=== PATIENT | female | born 1965 | race African-American/Black ===

== ENCOUNTER → 2021-06-18 | Outpatient (CLI) | payer BC ==
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
== END ==
LOC: KCIC 14:14
PROVIDERS: ATTEND Physical Medicine & Rehabilitation
DX: M17.0 Bilateral primary osteoarthritis of knee (principal); M47.813 Spondylosis without myelopathy or radiculopathy, cervicothoracic region; M47.815 Spondylosis without myelopathy or radiculopathy, thoracolumbar region; S80.852A Superficial foreign body, left lower leg, initial encounter; M48.02 Spinal stenosis, cervical region; M25.78 Osteophyte, vertebrae; X58.XXXA Exposure to other specified factors, initial encounter; Y93.89 Activity, other specified; Y92.89 Other specified places as the place of occurrence of the external cause; Y99.8 Other external cause status
CPT/HCPCS: 72050; 72072; 72110; 73565

== ENCOUNTER → 2021-10-18 | Outpatient (CLI) | payer BC ==
[~2021-10-18] MED LIST: AMLO-186 PO; ASPI-886 PO; ATOR40TA59 PO; CLOP75TA PO; GABA300C18 PO; HYDR-2868 PO; LOSA100T14 PO; TRAM50TA PO
== END ==
LOC: LAB 09:58
PROVIDERS: ATTEND Orthopaedic Surgery Sports Medicine
DX: Z01.812 Encounter for preprocedural laboratory examination (principal); Z20.822 Contact with and (suspected) exposure to COVID-19
CPT/HCPCS: U0003

== ENCOUNTER 2021-10-22 07:24 | Day surgery (SDC) | payer BC ==
[~2021-10-22] VITALS: Ht 180.3 cm; Wt 113.0 kg
[~2021-10-22 07:24] MED LIST changes: -AMLO-186 PO; -ASPI-886 PO; -ATOR40TA59 PO; +BUPIVACAINE MPF 0.5% 30 ML VIAL. ONE; -CLOP75TA PO; -GABA300C18 PO; -HYDR-2868 PO; +LIDOCAINE 1% Multi-Dose 20 ML VIAL. ONE; -LOSA100T14 PO; -TRAM50TA PO
[2021-10-22] MEDS ORDERED: GABA300C18 PO (07:57)
[2021-10-22] MEDS ORDERED: LOSA100T14 PO (07:57)
[2021-10-22] MEDS ORDERED: HYDR-2868 PO (07:57)
[2021-10-22] MEDS ORDERED: ATOR40TA59 PO (07:57)
[2021-10-22] MEDS ORDERED: AMLO-186 PO (07:57)
[2021-10-22] MEDS ORDERED: CLOP75TA PO (07:57)
[2021-10-22] MEDS ORDERED: ASPI-886 PO (07:57)
[2021-10-22] MEDS ORDERED: TRAM50TA PO (07:57)
[2021-10-22 08:00] VITALS: BP 130/72
[2021-10-22] MEDS ORDERED: IV RINGERS,LACTATED 1000ML 1,000 ML IV SCH (08:00)
[2021-10-22] MEDS ORDERED: SEVOFLURANE 31 TO 60 MINUTES. IH ONE (08:40)
[2021-10-22] MEDS ORDERED: LIDOCAINE 2% PF 5 ML VIAL. ONE (08:40)
[2021-10-22] MEDS ORDERED: PROPOFOL 10 MG/ML (20ML) VIAL. IV ONE (08:40)
--- NOTE | 2021-10-22 08:53 | DISCH ---
DISCHARGE INSTRUCTIONS Condition on Discharge Condition on Discharge: Stable Activity After Discharge Activity Instructions for Disc: Other ROM activity Other activity instructions: Wiggle fingers, keep wrist and hand elevated Lifting Instructions after Dis: No heavy lifting, No pulling or pushing Weight Bearing Status after Di: As tolerated Diet after Discharge Diet after Discharge: Regular Wound Incision Care Wound/Incision Care: Ice to area for comfort, Keep wound/cast CDI, Change dressing Other wound/incision instructi: Change dressing in [address] after DC Call your doctor for: Concerns you may have Follow-Up Follow up with: Surgeon in 2 weeks IWONA LIRA II, MD Oct 22, 2021 08:53
--- NOTE | 2021-10-22 08:56 | PDOC4 ---
Operative Note Operative Note Date of procedure: 10/22/2021 Surgeon: Washington Lira Director Of Business Operations: Jesu Funes Preoperative diagnosis: Right carpal tunnel syndrome Postoperative diagnosis: Same Procedure performed: Open right carpal tunnel release Anesthesia: General Tourniquet time: 10 minutes Blood loss: 2 mL Findings: Normal-appearing median nerve none Complications: None Reason for procedure: Patient is a very pleasant 56-year-old female who works as a nurses aide and has bilateral carpal tunnel syndrome. We had discussed the risk benefits alternatives after she had tried and failed conservative therapies. We had also discussed staged versus simultaneous bilateral surgery and she did not feel comfortable with bilateral surgery which I felt was reasonable. Description of procedure: Patient was greeted the preoperative area by myself or the correct extremity was verified and marked. Is taken to the operative suite and antibiotics were started as she was brought back. Once in the operating room, she was transferred gently supine to the operating room table and secured to the bed with all pressure points padded. The hand table was attached to the operating room table. Nonsterile tourniquet was applied to the right upper extremity. She underwent successful induction of a general anesthetic. After this, we proceeded to prep and drape right upper extremity in her usual sterile fashion and conducted our standard preoperative timeout. Esmarch was used to exsanguinate the extremity and tourniquet insufflated to 250 mmHg. I then made an incision in her volar wrist and crease in her hand from her distal wrist crease proceeding into her palm. I dissected subcutaneous tissue with a fine curved hemostat and used bipolar cautery for hemostasis as I proceeded. Identified the palmar fascia and incised this in line with the skin incision and I placed my self-retaining retractor. Identified the transverse carpal ligament and releases sharply with a scalpel. I then placed a Ragnell retractor at the distal portion of the incision, spread above and below small remaining portion of the transverse carpal ligament and releases with tenotomy's. I then repeated this maneuver in an ulnar directed fashion in the proximal portion of the incision. I inspected the median nerve and used the tip of the tenotomies to palpate along the course of the nerve to ensure that accomplished a complete release and I was confident I had. The wound was irrigated out and skin was closed with simple interrupted 3-0 nylon. All counts were correct x2 prior to wound closure. No complications. At the inclusion, the arm and hand were cleansed and dried, local anesthetic was infiltrated in subcutaneous tissue around the incision. A soft sterile bulky dressing was applied followed by an Jose wrap. Patient was then awakened from anesthesia transferred gently supine to the recovery room cart and taken to PACU stable and extubated condition. Postoperative plan is to discharge home. She can use her hand for light ADLs. I will see her back in 2 weeks, sooner should a problem arise. WASHINGTON LIRA II, MD Oct 22, 2021 08:56
[2021-10-22] MEDS ORDERED: DEXAMETHASONE SOD PHOS 4 MG/ML VIAL ONE (09:03)
[2021-10-22] MEDS ORDERED: ONDANSETRON PF 4 MG/2 ML VIAL. ONE (09:03)
[2021-10-22] MEDS ORDERED: fentaNYL PF VIAL 100 MCG/2 ML VIAL ONE (09:07)
[2021-10-22 10:00] VITALS: BP 137/69
[2021-10-22] MEDS ORDERED: traMADol 50 MG TABLET PO ONE ×2 (10:00)
== END 2021-10-22 10:20 | disposition home or self-care (01) ==
LOC: SURG 07:24
PROVIDERS: ATTEND Orthopaedic Surgery Sports Medicine
DX: G56.01 Carpal tunnel syndrome, right upper limb (principal); I10 Essential (primary) hypertension; E78.00 Pure hypercholesterolemia, unspecified; Z90.710 Acquired absence of both cervix and uterus; Z98.890 Other specified postprocedural states; Z79.899 Other long term (current) drug therapy; Z79.82 Long term (current) use of aspirin; Z87.891 Personal history of nicotine dependence
CPT/HCPCS: 64721; A4930; A6223; A6402; J0690; J1100; J2405; J2704; J3010; J3490; A4452; A4657; A6452